=== PATIENT | male | born 1975 | race Caucasian/White ===

== ENCOUNTER → 2024-12-03 | Outpatient (CLI) | payer SELFPAY ==
--- NOTE | 2024-12-03 09:45 | US_ITS ---
PROCEDURE: LIVER, 12/03/2024 REASON FOR EXAM: ELEVATED LEVELS OF LIVER TRANSAMINASE COMPARISON: None FINDINGS: Exam limited by shadowing bowel gas. Liver: Echogenic. 16.8 cm in length. Gallbladder: Unremarkable. Reportedly, sonographic Evans's was negative. Biliary tree: Unremarkable. CBD measures 5 mm. Pancreas: Largely obscured by shadowing bowel gas. Right kidney: Unremarkable. 11.0 cm in length. Other: No visualized free fluid. US/Liver IMPRESSION: 1. Appearance of the hepatic parenchyma most frequently associated with hepatic steatosis. Correlate for clinical and laboratory evidence of chronic liver disease. 2. Additional description as above. Reading Location: [id number]
== END | disposition home or self-care (01) ==
LOC: US 09:44
DX: R74.01 Elevation of levels of liver transaminase levels (principal); E11.65 Type 2 diabetes mellitus with hyperglycemia
CPT/HCPCS: 76705